=== PATIENT | female | born 1945 | race Caucasian/White ===

== ENCOUNTER → 2021-03-25 01:46 | Outpatient (CLI) | payer MEDICARE, SELFPAY ==
[2021-03-25 20:24] LABS: SARS-CoV-2 RNA PCR Positive
== END ==
PROVIDERS: PCP Family Medicine; Visit Provider Nurse Practitioner Family
DX: U07.1 COVID-19 (principal); R09.81 Nasal congestion
CPT/HCPCS: C9803; U0003; U0005